=== PATIENT | female | born 1965 | race Caucasian/White ===

== ENCOUNTER 2017-08-22 07:07 | Day surgery (SDC) | payer BC ==
[~2017-08-22 07:07] MED LIST: Lactated Ringers 1,000 ML IV SCH
[2017-08-22] MEDS ORDERED: DIPRIVAN 200 MG/20 ML IV ONE (07:08)
[2017-08-22] MEDS ORDERED: Ketamine HCl 50 MG/ML IV ONE (07:08)
[2017-08-22] MEDS ORDERED: ROBINUL IV ONE (07:08)
[2017-08-22] MEDS ORDERED: Lactated Ringers 1,000 ML IV ONE (09:52)
[2017-08-22 10:44] VITALS: BP 136/86; PULSE 79; O2SAT 98
--- NOTE | 2017-08-23 07:47 | OP ---
SURGERY DATE/TIME: 08/22/2017 0849 PREOPERATIVE DIAGNOSIS: Epigastric pain and history of polyps. POSTOPERATIVE DIAGNOSES: Epigastric pain and history of polyps. PROCEDURES: 1) EGD. 2) Colonoscopy to terminal ileum. 3) Biopsy of right colon probable lipoma. 4) Hot forceps polypectomy x5 (left colon x1, sigmoid colon x2, distal sigmoid colon x2). SURGEON: Hayden Ramon M.D. ANESTHESIA: MAC. SPECIMEN: Right colon probable lipoma. Left colon polyp x1. Sigmoid colon polyps x2, distal sigmoid colon polyps 2. ESTIMATED BLOOD LOSS: None. COMPLICATIONS: None. FINDINGS: EGD with normal exam. Colonoscopy complete to terminal ileum 2.5 cm lipoma in the distal right colon. Five tiny, sessile polyps measuring 2 to 3 mm in the left colon and sigmoid colon. PATIENT PRESENTATION: This patient presents with epigastric pain and history of polyps. After discussion of risks, benefits of EGD and colonoscopy the patient wished to proceed. DESCRIPTION OF PROCEDURE: The patient was brought to the endoscopy suite and placed in left lateral decubitus position. Placed under MAC anesthesia. Attention was first placed to EGD. The scope was advanced in the mouth. Under direct visualization the scope advanced to the esophagus. The esophagus was traversed. The stomach was entered. The pylorus was passed. The first, second and third portions of the duodenum were evaluated and appeared completely normal. The scope was withdrawn to the antrum. The stomach was insufflated. The scope was retroflexed. There did not appear to be any hiatal hernia. The stomach appeared completely normal. The scope was straightened. The scope was withdrawn in the distal esophagus which also appeared normal. The scope was readvanced to the stomach. The stomach desufflated. The scope was withdrawn through the esophagus and the esophagus further evaluated and appeared to be normal. The scope was withdrawn. Attention then was turned to colonoscopy. Rectal exam was performed with no obvious abnormality. The scope was advanced in the rectum. The scope was advanced throughout the colon with minimal difficulty. The sigmoid colon had some signs of likely diverticulitis in the past as it was fairly rigid and fixed. The scope was advanced all the way to the cecum. The ileocecal valve was intubated. The terminal ileum appeared normal. The scope was withdrawn into the cecum. Appendiceal orifice and ileocecal valve were clearly identified. The scope was withdrawn slowly and the colon further evaluated. There was a 2.5 cm lesion in the distal right colon that was soft and appeared to be lipoma. The overlying mucosa was biopsied and after this biopsy there did appear to be some fat underneath the mucosa consistent with a lipoma. The scope was further withdrawn. Five tiny, sessile polyps measuring 2 to 3 mm were removed with hot forceps polypectomy from the left colon x1, sigmoid colon x2, and distal sigmoid colon x2. The scope was withdrawn to the rectum. Retroflexion was performed. No other obvious abnormalities. The rectum was desufflated. The scope withdrawn. The patient recovered and taken to PACU in stable condition with plans for repeat colonoscopy in three years with her history of polyps.
== END 2017-08-22 11:01 | disposition home or self-care (01) ==
LOC: SDC 07:07
PROVIDERS: ATTEND Surgery
PROC: 0DJ08ZZ Inspection of Upper Intestinal Tract, Via Natural or Artificial Opening Endoscopic (ICD-10-PCS; principal; 2017-08-22)
PROC: 0DBF8ZX Excision of Right Large Intestine, Via Natural or Artificial Opening Endoscopic, Diagnostic (ICD-10-PCS; 2017-08-22)
PROC: 0DBG8ZX Excision of Left Large Intestine, Via Natural or Artificial Opening Endoscopic, Diagnostic (ICD-10-PCS; 2017-08-22)
PROC: 0DBN8ZX Excision of Sigmoid Colon, Via Natural or Artificial Opening Endoscopic, Diagnostic (ICD-10-PCS; 2017-08-22)
DX: K63.5 Polyp of colon (principal); Z86.010 Personal history of colon polyps; D17.79 Benign lipomatous neoplasm of other sites; R10.13 Epigastric pain
CPT/HCPCS: 88305; J2704

== ENCOUNTER 2022-08-17 12:16 | Day surgery (SDC) | payer BC ==
[2022-08-17] MEDS ORDERED: LIDOCAINE HCL 1% 50 MG/5 ML VL PF IJ ONE (12:17)
[2022-08-17] MEDS ORDERED: BUPIVACAINE 0.5% VIAL IJ ONE (12:17)
[2022-08-17] MEDS ORDERED: Decadron 4 MG INJ IV ONE (12:17)
[2022-08-17] MEDS ORDERED: Depo-Medrol 40 MG/ML IM ONE (12:17)
[2022-08-17] MEDS ORDERED: DIPRIVAN 200 MG/20 ML IV ONE (14:17)
[2022-08-17] MEDS ORDERED: Lactated Ringers 1,000 ML IV ONE (14:50)
--- NOTE | 2022-08-17 14:55 | XRAY ---
Indication: Right SI joint and right piriformis injection. Intraoperative fluoroscopy provided for 20 seconds. 2 digital spot image obtained prone submitted for interpretation demonstrate posterior needle tip projecting over the right piriformis muscle with small amount of contrast injected for needle tip placement. Additional needle tip projects over the presumed right SI joint. Correlate with intraoperative findings/report.
--- NOTE | 2022-08-17 15:28 | XRAY ---
20 seconds of fluoroscopy was used in surgery for a right sacroiliac joint and right piriformis injection.
== END 2022-08-17 14:50 | disposition home or self-care (01) ==
LOC: SDC-PAIN 12:16
PROVIDERS: ATTEND Psychiatry & Neurology Pain Medicine
DX: M46.1 Sacroiliitis, not elsewhere classified (principal); M79.18 Myalgia, other site; Z79.899 Other long term (current) drug therapy
CPT/HCPCS: 20552; 27096; 72170; 77002; J1030; J1100; J2001; J2704; Q9966; G0260

== ENCOUNTER 2022-11-30 11:26 | Day surgery (SDC) | payer BC ==
[2022-11-30] MEDS ORDERED: Sodium Chloride 0.9(Preservative Free) 10 ML IJ ONE (11:27)
[2022-11-30] MEDS ORDERED: Decadron 4 MG INJ IV ONE (11:27)
[2022-11-30] MEDS ORDERED: Depo-Medrol 40 MG/ML IM ONE (11:27)
[2022-11-30] MEDS ORDERED: LIDOCAINE HCL 1% 50 MG/5 ML VL PF IJ ONE (11:27)
[2022-11-30] MEDS ORDERED: DIPRIVAN 200 MG/20 ML IV ONE (13:29)
[2022-11-30] MEDS ORDERED: Lactated Ringers 1,000 ML IV ONE (14:42)
--- NOTE | 2022-11-30 18:39 | XRAY ---
Indication: Right L4-S1 transforaminal ESEQUIEL. Intraoperative fluoroscopy provided for 27 seconds. 4 digital spot image submitted for interpretation demonstrates posterior needle tip projecting over the expected right L4 and L5 nerve roots. Small amount of contrast injected for needle tip placement. Correlate with intraoperative findings/report.
--- NOTE | 2022-11-30 18:44 | XRAY ---
Indication: Right piriformis injection. Intraoperative fluoroscopy provided for 30 seconds. Single digital spot image submitted for interpretation demonstrates posterior needle tip projecting over the expected right piriformis muscle. Small amount of contrast injected for needle tip placement. Correlate with intraoperative findings/report.
--- NOTE | 2022-11-30 18:56 | XRAY ---
30 seconds of fluoroscopy was used in surgery for a right piriformis injection.
--- NOTE | 2022-11-30 18:57 | XRAY ---
27 seconds of fluoroscopy was used in surgery for a right L4-S1 transforaminal ESEQUIEL.
== END 2022-11-30 14:00 | disposition home or self-care (01) ==
LOC: SDC-PAIN 11:26
PROVIDERS: ATTEND Psychiatry & Neurology Pain Medicine
DX: M54.16 Radiculopathy, lumbar region (principal); M79.18 Myalgia, other site; Z79.899 Other long term (current) drug therapy
CPT/HCPCS: 20552; 64483; 64484; 72100; 72170; 77002; 77003; J1030; J1100; J2001; J2704; Q9966

== ENCOUNTER 2023-02-01 11:10 | Day surgery (SDC) | payer BC ==
[2023-02-01] MEDS ORDERED: BUPIVACAINE 0.5% VIAL IJ ONE (11:11)
[2023-02-01] MEDS ORDERED: Depo-Medrol 40 MG/ML IM ONE (11:11)
[2023-02-01] MEDS ORDERED: DIPRIVAN 200 MG/20 ML IV ONE (12:13)
[2023-02-01] MEDS ORDERED: Xylocaine-Mpf 2% 5 Ml Vial ONE (12:14)
[2023-02-01] MEDS ORDERED: Lactated Ringers 1,000 ML IV ONE (12:56)
--- NOTE | 2023-02-01 13:44 | XRAY ---
Indication: Right ischial bursa injection. Intraoperative fluoroscopy provided for 11 seconds. Single digital spot image submitted for interpretation demonstrates posterior needle tip projecting inferior to the right ischial tuberosity with small amount of contrast injected for needle tip placement. Correlate with intraoperative findings/report.
--- NOTE | 2023-02-01 13:58 | XRAY ---
11 seconds of fluoroscopy was used in surgery for a right ischial bursa injection.
== END 2023-02-01 12:45 | disposition home or self-care (01) ==
LOC: SDC-PAIN 11:10
PROVIDERS: ATTEND Psychiatry & Neurology Pain Medicine
DX: M70.71 Other bursitis of hip, right hip (principal)
CPT/HCPCS: 20610; 72170; 77002; J1030; J2704; Q9966